=== PATIENT | male | born 1950 | race Caucasian/White ===

== ENCOUNTER 2023-07-03 06:54 | Day surgery (SDC) | payer MEDICARE, OTHER ==
[~2023-07-03] VITALS: Ht 180.3 cm; Wt 88.3 kg
[~2023-07-03 06:54] MED LIST: ALLO300 PO; ANTIINFLAMMATORY; ASPI325EC PO; ASPI81CH PO; ATOR20 PO; Advil200 M1 PO; BENZ100A PO; Isosorbide Mono30 MG PO; MOBIC15 MG PO; NITR.4SL SL; NITR.6SL SL; OMEP20ER PO; OXYC5 PO; TAMS.4ER PO
[2023-07-03 08:54] VITALS: BP 127/73
== END 2023-07-03 08:52 | disposition home or self-care (01) ==
LOC: ORSCSDS 06:54
PROVIDERS: Internal Medicine Gastroenterology
PROC: 0DJD8ZZ Inspection of Lower Intestinal Tract, Via Natural or Artificial Opening Endoscopic (ICD-10-PCS; principal; 2023-07-03 08:00)
DX: Z12.11 Encounter for screening for malignant neoplasm of colon (principal); Z87.891 Personal history of nicotine dependence; Z79.82 Long term (current) use of aspirin; Z79.899 Other long term (current) drug therapy
CPT/HCPCS: J2704; J7120

== ENCOUNTER 2024-09-24 05:48 | Day surgery (SDC) | payer MEDICARE, OTHER ==
[2024-09-24] VITALS (18 sets, daily range): BP systolic 94–150; BP diastolic 53–79
[~2024-09-24] VITALS: Ht 180.3 cm; Wt 94.9 kg
[~2024-09-24 05:48] MED LIST changes: +AMLODIPINE-OLM1 EAC2 PO
[2024-09-24] MEDS ORDERED: Vancomycin HCL 1,000 MG in NS 250 ML IV SCH ×2 (06:15→19:15)
[2024-09-24] MEDS ORDERED: CeFAZolin Sodium 2,000 MG in NS 100 ML IV SCH ×2 (06:15→16:00)
[2024-09-24] MEDS ORDERED: Tranexamic Acid 100 ML IV SCH (06:15)
[2024-09-24] MEDS ORDERED: Ropivacaine 0.5% HCl/Pf 123.125 MG,EPINEPHrine HCL 0.25 MG,Ketorolac Tromethamine 15 MG... INFIL SCH (06:15)
[2024-09-24] MEDS ORDERED: OxyCODONE HCL 10 MG TABCR PO SCH (06:15)
[2024-09-24] MEDS ORDERED: Lactated Ringer's 1,000 ML IV SCH ×2 (06:15→07:00)
[2024-09-24] MEDS ORDERED: Chlorhexidine Mouth Care 15 ML UDC MT SCH (06:15)
[2024-09-24] MEDS ORDERED: Acetaminophen 500 MG Tab PO SCH ×2 (06:15→16:00)
[2024-09-24] MEDS ORDERED: CeFAZolin Sodium 2,000 MG VIAL ONE (06:43)
[2024-09-24] MEDS ORDERED: OxyCODONE HCL 5 MG TAB PO PRN ×2 (06:55)
[2024-09-24] MEDS ORDERED: Promethazine HCl 25 MG Tab PO PRN (06:55)
[2024-09-24] MEDS ORDERED: Bisacodyl 10 MG Supp PR PRN (06:55)
[2024-09-24] MEDS ORDERED: FentaNYL Citrate 50 MCG/ML 2 ML Injection ONE (06:58)
[2024-09-24] MEDS ORDERED: propofoL 80 ML IV ONE (06:58)
[2024-09-24] MEDS ORDERED: Lidocaine HCl 2% 20 ML MDV ONE (06:58)
[2024-09-24] MEDS ORDERED: Ondansetron HCl 2 MG / ML 2ML Vial IV PRN (07:00)
[2024-09-24] MEDS ORDERED: EpiNEPhrine 1 MG/1 ML 1ML Vial ONE (07:00)
[2024-09-24] MEDS ORDERED: Bupivacaine 0.5% HCl 5 MG/ML 30MLVIAL ONE (07:00)
[2024-09-24] MEDS ORDERED: Metoclopramide HCl 5MG / ML 2ML Vial IV PRN (07:00)
[2024-09-24] MEDS ORDERED: HYDROmorphone HCl/Pf 1MG SYR IV PRN (07:00)
[2024-09-24] MEDS ORDERED: Magnesium Hydroxide Conc 10 ML UDC PO PRN (07:00)
[2024-09-24] MEDS ORDERED: FLU VACC TS2024-25(6MOS UP)/PF 45 MCG/0.5 ML SYRINGE IM SCH (07:00)
[2024-09-24] MEDS ORDERED: DiphenhydrAMINE HCL 25 MG Cap PO PRN (07:05)
--- NOTE | 2024-09-24 07:37 | NUR ---
History, Chart, Medications and Allergies reviewed before start of procedure.Lungs clear T/O to Auscultation. Pre-Op teaching done. Pt verbalizes understanding. Patient confirms NPO status and agrees with scheduled surgery.PATIENT QUITE NERVOUS ABOUT THE POST OP PAIN. REASSURED PATIENT THROUGH OUT THE PRE OP TIME. PATIENT PUT HIS PHONE IN HIS SHOE WITH HIS BELONGINGS, GLASSES TAKEN TO PACU.
[2024-09-24] MEDS ORDERED: Hyaluronidase 150 UNIT/ML Vial SC ONE (07:50)
--- NOTE | 2024-09-24 08:38 | NUR ---
09/24/24 0838 Yesenia Cornejo PRIOR TO ARRIVING IN THE OR, VANCO 1GM IV STARTED IN DAY SURGERY.
[2024-09-24] MEDS ORDERED: propofoL 20 ML IV ONE ×2 (09:21→09:52)
[2024-09-24] MEDS ORDERED: Ketorolac Tromethamine 15mg Vial IV SCH (12:00)
--- NOTE | 2024-09-24 19:28 | NUR ---
SHIFT SUMMARY POD0 R TKA, A/OX4, VSS, TOLERATING PO, AMBULATING, VOIDING, PAIN WELLMANAGED, DRESSING C/D/I. NO ACUTE EVENTS THIS SHIFT, CALL LIGHT IN REACH.
[2024-09-24] MEDS ORDERED: Docusate Sodium 100 MG Cap PO SCH (21:00)
[2024-09-25 04:59] VITALS: BP 131/72
[2024-09-25 04:59] LABS: BASOPHILS ABSOLUTE AUTO 0.03 K/mm3 (0.00-0.23); BASOPHILS PERCENT AUTO 0 % (0-2); EOSINOPHILS ABSOLUTE AUTO 0.18 K/mm3 (0.00-0.68); EOSINOPHILS PERCENT AUTO 2 % (0-6); Hematocrit 34.4 % (37.0-53.0); Hemoglobin 11.3 g/dL (13.5-17.5); IMMATURE GRAN ABSOLUTE AUTO 0.02 K/mm3 (0.00-0.10); IMMATURE GRAN PERCENT AUTO 0 % (0-1); LYMPHOCYTES ABSOLUTE AUTO 1.18 K/mm3 (0.84-5.20); LYMPHOCYTES PERCENT AUTO 12 % (21-46); MONOCYTES PERCENT AUTO 11 % (4-13); Mean Corpuscular HGB Conc 32.8 g/dL (31.5-36.5); Mean Corpuscular Volume 85 fL (80-100); Mean Platelet Volume 10.9 fL (9.1-12.4); NEUTROPHILS PERCENT AUTO 74 % (41-73); Platelet Count 255 K/mm3 (150-400); RDW Coefficient Variation 13.5 % (11.7-14.2); RDW Standard Deviation 41.7 fL (35.1-46.3); Red Blood Cell Count 4.04 M/mm3 (4.30-5.90); White Blood Cell Count 9.71 K/mm3 (4.00-11.30)
--- NOTE | 2024-09-25 05:18 | NUR ---
SHIFT SUMMARY POD 1 L TKA PT SLEPT FOR MOST OF NIGHT. PAIN MANAGED PER EMAR. TOLERAING PO INTAKE, VOIDING. PT 1P ASST W/ FWW AND GB. DRESSING TO L KNEE IS C/D/I. PT TOOK A WALK LAST NIGHT. PT UP IN CHAIR THIS AM, PLAN FOR THERAPY AND THEN D/C HOME TODAY. VSS. NO OTHER CONCERNS AT THIS TIME, CALL LIGHT WITHIN REACH
[2024-09-25 05:20] LABS: Bun/Creatinine Ratio 20.9 (12.0-20.0); Calcium, Blood 8.5 mg/dL (8.5-10.1); Creatinine, Blood 1.15 mg/dL (0.60-1.20); Potassium, Blood 4.5 mmol/L (3.5-5.5)
[2024-09-25] MEDS ORDERED: Omeprazole 20 MG CapCR PO SCH (06:00)
[2024-09-25 07:28] VITALS: BP 172/79
[2024-09-25] MEDS ORDERED: OXAYDO5 M1 PO (07:48)
[2024-09-25] MEDS ORDERED: PROM25 PO (07:49)
[2024-09-25] MEDS ORDERED: BACTRIM DS TAB1 EAC6 PO (07:50)
[2024-09-25] MEDS ORDERED: Trimethoprim/Sulfamethoxazole DS Tab PO SCH (09:00)
[2024-09-25] MEDS ORDERED: Aspirin 81 MG Chew PO SCH (09:00)
[2024-09-25] MEDS ORDERED: Losartan Potassium 50 MG Tab PO SCH (09:00)
[2024-09-25] MEDS ORDERED: AmLODIPine Besylate 5 MG Tab PO SCH (09:00)
[2024-09-25] MEDS ORDERED: Allopurinol 300 MG Tab PO SCH (09:00)
[2024-09-25] MEDS ORDERED: Tamsulosin HCl 0.4 MG Cap PO SCH (09:00)
--- NOTE | 2024-09-25 10:24 | NUR ---
DISCHARGE SUMMARY POD1 R TKA, A/OX4, VSS, TOLERATING PO, AMBULATING WELL, VOIDING, PAIN WELL MANAGED, BULKY DRESSING REMVOED THIS AM BY ORTHO, INCISION CLEANED AT THE BEDSIDE WITH PEROXIDE AND NEW [place] DRESSING PLACED WITH INCISION CARE PROVIDED ALSO BY ORTHO DURING DRESSING CHANGE. DISTAL CIRCULATION INTACT AND CAP REFFIL < 3 SECONDS, ABLE TO WIGGLE TOES, DENIES N/T. DISCUSSED DC INSTRUCTIONS INCLUDING HOME CARE, MEDICATIONS, AND FOLLOW UP APPOINTMENTS. NO QUESTIONS AT THIS TIME, ESCORTED OUT VIA WC TO PRIVATE AUTO TO GO HOME.
== END 2024-09-25 10:01 | disposition home or self-care (01) ==
LOC: ORSCMMR 05:48 → ORD 07:30 → SURS 10:59 → ORSCMMR 09-25 10:01
PROVIDERS: Orthopaedic Surgery
PROC: 0SRC0J9 Replacement of Right Knee Joint with Synthetic Substitute, Cemented, Open Approach (ICD-10-PCS; principal; 2024-09-24 07:30)
DX: M17.11 Unilateral primary osteoarthritis, right knee (principal); I10 Essential (primary) hypertension; K21.9 Gastro-esophageal reflux disease without esophagitis; Z79.899 Other long term (current) drug therapy; Z79.82 Long term (current) use of aspirin; Z87.891 Personal history of nicotine dependence
CPT/HCPCS: 36415; 73560-RT; 80048; 83735; 85025; 97110; 97116; 97162; A9270; C1713; C1776; J0171; J0690; J0735; J1885; J2704; J2795; J3010; J3370; J3470; J7050; J7120